=== PATIENT | female | born 1965 | race Caucasian/White ===

== ENCOUNTER 2024-07-21 14:03 | Inpatient (IN) | payer BC ==
[2024-07-21 14:33] LABS: #Basophils 0.07 10x3/uL (0.0-0.2); %Basophils 0.8 % (0.0-1.0); %Eosinophils 1.5 % (0.0-10.0); %Lymphocytes 13.9 % (21.0-51.0); %Monocytes 4.5 % (0.0-10.0); %Neutrophils 79.1 % (42.0-75.0); Hematocrit 42.2 % (36.0-47.0); Hemoglobin 14.2 g/dL (12.0-16.0); Mean Corpuscular HGB CONC 33.6 g/dL (32.0-36.0); Mean Corpuscular Hemoglobin 30.9 pg (27.0-31.0); Mean Corpuscular Volume 91.9 fL (78.0-98.0); Mean Platelet Volume 9.5 fL (7.4-10.4); Platelet Count 288 10x3/uL (130-400); RBC Distribution Width 13.2 % (11.5-14.5); Red Blood Cell (RBC) Count 4.59 mill/uL (4.20-5.40)
[2024-07-21 14:45] LABS: ALT (SGPT) 14 U/L (8-55); AST (SGOT) 16 U/L (5-34); Albumin 3.7 g/dL (3.5-5.0); Alkaline Phosphatase 85 U/L (40-110); Anion Gap 13 mmol/L (10-20); BUN (Urea Nitrogen) 11 mg/dL (9.8-20.1); Bilirubin, Total 0.6 mg/dL (0.2-1.2); Calc. Creatinine Clearance 0 mL/min (70-130); Calcium 9.7 mg/dL (7.8-10.44); Carbon Dioxide 26 mmol/L (22-29); Chloride 103 mmol/L (98-107); Estimated GFR 83; Globulin 3.4 g/dL (2.4-3.5); Glucose 124 mg/dL (70-105); Potassium 4.2 mmol/L (3.5-5.1); Protein, Total 7.1 g/dL (6.0-8.3); Sodium 138 mmol/L (136-145)
[2024-07-21 14:51] LABS: Troponin I 0.036 ng/mL (< 0.028)
[2024-07-21] MEDS ORDERED: Nitroglycerin 2% Ointment 1 INCH/1 GM Packet ONE (15:23)
[2024-07-21] MEDS ORDERED: Aspirin Chewable 81 MG TAB ONE (15:23)
[2024-07-21] MEDS ORDERED: Guaifenesin DM 100-10/5 ML UDCUP PO PRN (16:06)
[2024-07-21] MEDS ORDERED: Ondansetron PF 4 MG/2 ML Vial IVP PRN (16:06)
[2024-07-21] MEDS ORDERED: Calcium Carbonate 500 MG ChewTAB PO PRN (16:06)
[2024-07-21 17:45] LABS: Troponin I 0.034 ng/mL (< 0.028)
[2024-07-21 20:50] LABS: Troponin I 0.034 ng/mL (< 0.028)
[2024-07-21 21:22] VITALS: BMI 37.8
[2024-07-21] MEDS: Atorvastatin Calcium 20 MG TAB PO SCH (22:18)
[2024-07-21] MEDS: Pantoprazole DR 40 MG TAB PO SCH (22:18)
[2024-07-22] MEDS: Acetaminophen 325 MG TAB PO PRN (02:06)
[2024-07-22 07:29] LABS: #Basophils 0.06 10x3/uL (0.0-0.2); %Basophils 0.8 % (0.0-1.0); %Eosinophils 1.8 % (0.0-10.0); %Lymphocytes 24.6 % (21.0-51.0); %Monocytes 6.5 % (0.0-10.0); Hematocrit 38.8 % (36.0-47.0); Hemoglobin 12.5 g/dL (12.0-16.0); Mean Corpuscular HGB CONC 32.2 g/dL (32.0-36.0); Mean Corpuscular Hemoglobin 30.5 pg (27.0-31.0); Mean Corpuscular Volume 94.6 fL (78.0-98.0); Mean Platelet Volume 9.4 fL (7.4-10.4); Platelet Count 253 10x3/uL (130-400); RBC Distribution Width 13.5 % (11.5-14.5)
[2024-07-22 07:52] LABS: Anion Gap 13 mmol/L (10-20); BUN (Urea Nitrogen) 10 mg/dL (9.8-20.1); Calc. Creatinine Clearance 116 mL/min (70-130); Calcium 9.3 mg/dL (7.8-10.44); Carbon Dioxide 22 mmol/L (22-29); Cardiac Risk 4.8 (Less than 4.5); Chloride 107 mmol/L (98-107); Cholesterol 179 mg/dl (< 200 Desired); Estimated GFR 88; Glucose 92 mg/dL (70-105); HDL Cholesterol 37 mg/dL (>60 Neg Risk); LDL Cholesterol, Calculated 101 mg/dL; Potassium 4.1 mmol/L (3.5-5.1); Sodium 138 mmol/L (136-145); Triglycerides 205 mg/dL (Less than 150)
[2024-07-22] MEDS: Enoxaparin 40 MG (0.4 mL) SYRINGE SC SCH (09:35)
[2024-07-22] MEDS ORDERED: Regadenoson 0.4 MG/5 ML SYRINGE ONE (11:54)
[2024-07-22] MEDS ORDERED: Iopamidol-370 76% 500 ML MDV (1 ML CHARGE) ONE (15:20)
[2024-07-22] MEDS: Aspirin Chewable 81 MG TAB PO SCH (16:32)
[2024-07-22] MEDS: Nebivolol HCl 2.5 MG TAB PO SCH (16:32)
[2024-07-22] MEDS: Lorazepam 2 MG/ML VIAL SLOW IVP SCH (16:32)
[2024-07-22] MEDS ORDERED: Lorazepam 2 MG/ML VIAL SLOW IVP SCH (17:15)
[2024-07-22 23:02] LABS: Magnesium 2.2 mg/dL (1.6-2.6)
[2024-07-22 23:08] LABS: Troponin I 0.047 ng/mL (< 0.028)
[2024-07-23] MEDS ORDERED: Magnevist 469MG/ML 20 ML VIAL ONE (15:41)
[2024-07-23] MEDS: hydrOXYzine 25 MG TAB PO PRN (21:02)
[2024-07-23] MEDS: Gabapentin 300 MG CAP PO SCH (22:24)
[2024-07-23] MEDS: Nitroglycerin 0.4 MG TAB (25 Tab Bottle) SL PRN (22:39)
[2024-07-24] MEDS ORDERED: Iopamidol 370 76% 100 ML VIAL ONE (09:13)
[2024-07-24] MEDS: traMADol HCl 50 MG TAB PO PRN (09:57)
[2024-07-24] MEDS: levETIRAcetam 500 MG (5 mL) VIAL SLOW IVP SCH (13:33)
[2024-07-24 14:39] LABS: Reference Lab Name LABCORP
[2024-07-24] MEDS: levETIRAcetam 500 MG TAB PO SCH (20:19)
[2024-07-24] MEDS: Acetaminophen 500 MG TAB PO PRN (20:20)
[2024-07-25] MEDS ORDERED: Sodium Bicarbonate 0.5 MEQ/ML SDV 10 ML ONE (07:23)
[2024-07-25 10:08] LABS: Reference Lab Name LABCORP
[2024-07-25 10:11] LABS: CSF Source CSF; Clarity Clear (Clear); Tube # 3
[2024-07-25 10:19] LABS: CSF, Glucose 62 mg/dl (40-70); CSF, Protein 39.3 mg/dL (15-40)
[2024-07-25 10:26] LABS: Color Of CSF Supernatant COLORLESS (Colorless); Tube # 1; Unspun CSF Color COLORLESS (Colorless)
[2024-07-25] MEDS: Gabapentin 300 MG CAP PO SCH ×2 (12:45→21:25)
[2024-07-27 00:37] LABS: HSV 1 - DNA, CSF Negative (Negative); HSV 2 - DNA, CSF Negative (Negative)
[2024-07-27] MEDS: Gabapentin 300 MG CAP PO SCH (14:12)
[2024-07-28] MEDS: Lorazepam 0.5 MG TAB PO PRN (11:28)
[2024-07-28] MEDS: hydrALAZINE 25 MG TAB PO SCH (16:04)
[2024-07-29] MEDS ORDERED: Midazolam HCl 2 mg/2 ml Vial ONE (15:53)
[2024-07-29] MEDS ORDERED: Lidocaine 1% MPF 2 ML VIAL ONE (16:05)
[2024-07-29] MEDS ORDERED: fentaNYL 50 mcg/mL 1 mL Vial ONE ×3 (16:08→22:42)
[2024-07-29] MEDS ORDERED: Bupivacaine PF 0.5% 30 ML VIAL ONE (19:10)
[2024-07-29] MEDS ORDERED: EPINEPHrine 1 MG/ML VIAL ONE (19:10)
[2024-07-29] MEDS ORDERED: ePHEDrine Sulfate 50 MG/10 ML VIAL ONE ×2 (19:24→20:56)
[2024-07-29] MEDS ORDERED: Fentanyl 250 MCG/5 ML VIAL ONE (19:25)
[2024-07-29] MEDS ORDERED: Ondansetron PF 4 MG/2 ML Vial ONE (19:41)
[2024-07-29] MEDS ORDERED: Calcium Chloride 1 GM/10 ML Abboject SYRINGE ONE (19:41)
[2024-07-29] MEDS ORDERED: Rocuronium Bromide 10 MG/ML (10ML VIAL) ONE (19:41)
[2024-07-29] MEDS ORDERED: Dexamethasone 4 mg/ml Vial ONE (20:08)
[2024-07-29] MEDS: Transdermal Patch Removal TOP SCH (21:00)
[2024-07-29] MEDS ORDERED: SUGAMMADEX SODIUM 200 MG/2 ML VIAL ONE (21:11)
[2024-07-29] MEDS ORDERED: PROPOFOL 20 ML ONE (21:46)
[2024-07-29] MEDS ORDERED: Cyclobenzaprine 10 MG TAB PO PRN (21:52)
[2024-07-29] MEDS: Acetaminophen 500 MG TAB PO SCH (23:42)
[2024-07-29] MEDS: Ketorolac Tromethamine 30 MG (1 mL) VIAL IVP SCH (23:42)
[2024-07-30] MEDS: oxyCODONE 5 MG TAB PO PRN (03:29)
[2024-07-30 05:30] LABS: #Basophils Less than 0.03 10x3/uL (0.0-0.2); #Eosinophils Less than 0.03 10x3/uL (0.0-0.7); %Basophils 0.1 % (0.0-1.0); %Lymphocytes 5.5 % (21.0-51.0); %Monocytes 3.1 % (0.0-10.0); %Neutrophils 90.9 % (42.0-75.0); Hematocrit 41.7 % (36.0-47.0); Hemoglobin 13.9 g/dL (12.0-16.0); Mean Corpuscular HGB CONC 33.3 g/dL (32.0-36.0); Mean Corpuscular Hemoglobin 30.3 pg (27.0-31.0); Mean Platelet Volume 9.5 fL (7.4-10.4); Platelet Count 289 10x3/uL (130-400); RBC Distribution Width 13.2 % (11.5-14.5); Red Blood Cell (RBC) Count 4.58 mill/uL (4.20-5.40)
[2024-07-30 06:22] LABS: Anion Gap 14 mmol/L (10-20); Calc. Creatinine Clearance 102 mL/min (70-130); Calcium 9.6 mg/dL (7.8-10.44); Carbon Dioxide 26 mmol/L (22-29); Chloride 101 mmol/L (98-107); Estimated GFR 76; Glucose 151 mg/dL (70-105); Potassium 4.1 mmol/L (3.5-5.1); Sodium 137 mmol/L (136-145)
[2024-07-30 06:54] LABS: BUN (Urea Nitrogen) 9 mg/dL (9.8-20.1)
[2024-07-30] MEDS: Lidocaine 4% Patch TD SCH (09:35)
[2024-07-30 11:48] VITALS: BMI 37.5
[2024-07-31 13:27] VITALS: BP 107/72; TEMP 98.4
== END 2024-07-31 13:55 | disposition home or self-care (01) | DRG 165 ==
LOC: ERS 14:03 → ERHOLD 15:52 → 2SW 20:52 → OBSVTOIN 07-22 16:18 → MSONC 07-23 17:58
PROVIDERS: ADMIT Internal Medicine; ATTEND Hospitalist
PROC: 009U3ZX Drainage of Spinal Canal, Percutaneous Approach, Diagnostic (ICD-10-PCS; 2024-07-25)
PROC: 4A00X4Z Measurement of Central Nervous Electrical Activity, External Approach (ICD-10-PCS; 2024-07-25)
PROC: 07TM4ZZ Resection of Thymus, Percutaneous Endoscopic Approach (ICD-10-PCS; principal; 2024-07-29)
PROC: 8E0W4CZ Robotic Assisted Procedure of Trunk Region, Percutaneous Endoscopic Approach (ICD-10-PCS; 2024-07-29)
DX: J98.59 Other diseases of mediastinum, not elsewhere classified (principal); R20.2 Paresthesia of skin; F41.9 Anxiety disorder, unspecified; E78.5 Hyperlipidemia, unspecified; Z90.710 Acquired absence of both cervix and uterus; Z98.51 Tubal ligation status; Z90.49 Acquired absence of other specified parts of digestive tract; R07.89 Other chest pain; I10 Essential (primary) hypertension; K22.70 Barrett's esophagus without dysplasia; Z79.899 Other long term (current) drug therapy
CPT/HCPCS: 36415; 62270; 70450; 70496; 70498; 70551; 70552; 71045; 71260; 74177; 76376; 78452; 80048; 80053; 80061; 82945; 83519; 83735; 83916; 84146; 84157; 84484; 85025; 87529; 88307; 89051; 93005; 93010; 93017; 94760; 95700; 95711; 95957; 96372; A9500; A9502; A9579; C1889; G0378; J0171; J0665; J1100; J1642; J1650; J1885; J1953; J2060; J2250; J2405; J2704; J2785; J3010; Q9967

== ENCOUNTER 2024-08-14 14:12 | Outpatient (CLI) | payer BC | END 2024-08-14 14:13 | disposition home or self-care (01) | LOC: RAD 14:12 | PROVIDERS: ATTEND Student in an Organized Health Care Education/Training Program | DX: J98.59 Other diseases of mediastinum, not elsewhere classified (principal) | CPT/HCPCS: 71046 ==